=== PATIENT | female | born 1970 | race Caucasian/White ===

== ENCOUNTER 2018-11-06 10:05 | Day surgery (SDC) | payer OTHER ==
[~2018-11-06] VITALS: Ht 174 cm; Wt 64.7 kg
[~2018-11-06 10:05] MED LIST: BUDE10.22 INH; BUPIVACAINE/PF 0.5% ONE; DULO60CA55 PO; EPINEPHRINE 1 MG/ML, 1ML ONE; RANI150T4 PO
[2018-11-06 10:37] VITALS: BP 122/83
[2018-11-06] MEDS ORDERED: LACTATED RINGERS 1,000 ML IV SCH (10:37)
[2018-11-06 11:00] LABS: HCG UR SG 1.024 (1.003-1.030)
[2018-11-06] MEDS ORDERED: ACETAMINOPHEN 500 MG TABLET PO ONE (11:00)
[2018-11-06] MEDS ORDERED: GABAPENTIN 300 MG CAPSULE PO ONE (11:00)
[2018-11-06] MEDS ORDERED: MIDAZOLAM 1 MG/ML, 2ML ONE (11:09)
[2018-11-06] MEDS ORDERED: FENTANYL PF 250 MCG/5ML ONE (11:09)
[2018-11-06] MEDS ORDERED: HYDROmorphone 2 MG/ML, 1ML IVPush PRN (11:30)
[2018-11-06] MEDS ORDERED: HALOPERIDOL 5 MG/ML IV PRN (11:30)
[2018-11-06] MEDS ORDERED: DIPHENHYDRAMINE 50 MG/ML, 1ML IVPush PRN (11:30)
[2018-11-06] MEDS ORDERED: hydrALAzine 20 MG/ML, 1ML IV PRN (11:30)
[2018-11-06] MEDS ORDERED: PROMETHAZINE 25 MG/ML, 1ML IV PRN (11:30)
[2018-11-06] MEDS ORDERED: MEPERIDINE/PF 25MG/0.5ML IVPush PRN (11:30)
[2018-11-06] MEDS ORDERED: OXYcodone 5 MG/5 ML ORAL.SOL UDC PO PRN (11:30)
[2018-11-06] MEDS ORDERED: FENTANYL PF 100 MCG/2ML IV PRN (11:30)
[2018-11-06] MEDS ORDERED: PROCHLORPERAZINE 5 MG/ML, 2ML IV PRN (11:30)
[2018-11-06] MEDS ORDERED: METOPROLOL 1 MG/ML, 5ML IV PRN (11:30)
[2018-11-06] MEDS ORDERED: LABETALOL 5MG/ML, 20ML IV PRN (11:30)
[2018-11-06] MEDS ORDERED: GLYCOPYRROLATE 0.2MG/1ML, 5ML ONE (14:06)
[2018-11-06] MEDS ORDERED: CEFAZOLIN 1,000 MG ONE (14:06)
[2018-11-06] MEDS ORDERED: SUCCINYLCHOLINE 20 MG/ML, 10ML ONE (14:06)
[2018-11-06] MEDS ORDERED: DEXAMETHASONE 4 MG/ML, 1ML ONE (14:06)
[2018-11-06] MEDS ORDERED: PROPOFOL 10 MG/ML, 20ML ONE (14:06)
[2018-11-06] MEDS ORDERED: NEOSTIGMINE 1 MG/ML, 10ML ONE (14:06)
[2018-11-06] MEDS ORDERED: ONDANSETRON 2MG/ML, 2ML ONE (14:06)
[2018-11-06] MEDS ORDERED: ROCURONIUM 10MG/ML,5ML ONE (14:06)
[2018-11-06] MEDS ORDERED: OXYcodone 5 MG/5 ML ORAL.SOL UDC ONE (15:08)
[2018-11-06] MEDS ORDERED: FENTANYL PF 100 MCG/2ML ONE (15:08)
== END 2018-11-06 18:00 | disposition home or self-care (01) ==
LOC: OUT 10:05
PROVIDERS: ATTEND Surgery
DX: K43.2 Incisional hernia without obstruction or gangrene (principal); J45.909 Unspecified asthma, uncomplicated; F41.9 Anxiety disorder, unspecified; K21.9 Gastro-esophageal reflux disease without esophagitis; E66.9 Obesity, unspecified; Z68.22 Body mass index [BMI] 22.0-22.9, adult; Z72.89 Other problems related to lifestyle; Z79.899 Other long term (current) drug therapy; Z90.49 Acquired absence of other specified parts of digestive tract; Z98.890 Other specified postprocedural states; Z82.49 Family history of ischemic heart disease and other diseases of the circulatory system; Z80.9 Family history of malignant neoplasm, unspecified
CPT/HCPCS: 49656; 81025; C1781; J0171; J0330; J0690; J1100; J2250; J2405; J2704; J2710; J3010; J7120; S2900

== ENCOUNTER 2018-11-25 02:17 | Emergency (ER) | payer OTHER ==
[~2018-11-25] VITALS: Ht 172.7 cm; Wt 67.6 kg
[~2018-11-25 02:17] MED LIST changes: -BUPIVACAINE/PF 0.5% ONE; -EPINEPHRINE 1 MG/ML, 1ML ONE
--- NOTE | 2018-11-25 02:35 | NUR ---
HERNIA REPAIR X 2 WEEKS, HAS HAD FEVER TODAY, JOSE, JOINT PAIN. TOOK ADVIL @ 0000.
[2018-11-25] MEDS ORDERED: ACETAMINOPHEN 500 MG TABLET ONE (02:54)
[2018-11-25] MEDS ORDERED: ACETAMINOPHEN 500 MG TABLET PO ONE (03:00)
--- NOTE | 2018-11-25 03:00 | NUR ---
pt attached to all monitors
[2018-11-25 03:10] LABS: BASOPHILS # (AUTO) 0.03 x10^3/uL (0-0.1); BASOPHILS % (AUTO) 0 % (0-1); EOSINOPHILS # (AUTO) 0.05 x10^3/uL (0-0.4); EOSINOPHILS % (AUTO) 1 % (1-7); LYMPHOCYTES # (AUTO) 1.04 x10^3/uL (1-3.4); LYMPHOCYTES % (AUTO) 17 % (22-44); MD NO; MEAN CORPUSCULAR HEMOGLOBIN 31.1 pg (27.0-34.8); MEAN CORPUSCULAR VOLUME 94.2 fL (80-100); MEAN PLATELET VOLUME 8.4 fL (7.4-10.4); MONOCYTES # (AUTO) 0.39 x10^3/uL (0.2-0.8); MONOCYTES % (AUTO) 6 % (2-9); NEUTROPHILS # (AUTO) 4.81 x10^3/uL (1.8-6.8); NEUTROPHILS % (AUTO) 76 % (42-75); PLATELET COUNT 275 x10^3/uL (130-400); RED BLOOD COUNT 4.32 x10^6/uL (3.82-5.3); RED CELL DISTRIBUTION WIDTH 13.2 % (9.6-15.2)
[2018-11-25 03:17] LABS: ALANINE AMINOTRANSFERASE 19 U/L (12-78); ALBUMIN 3.7 g/dL (3.4-5.0); ANION GAP 6 mmol/L (5-15); CALCIUM 8.6 mg/dL (8.5-10.1); CHLORIDE 106 mmol/L (98-107); CREATININE 0.97 mg/dL (0.55-1.02)
[2018-11-25 03:21] LABS: ALKALINE PHOSPHATASE 39 U/L (45-117); BILIRUBIN,TOTAL 0.4 mg/dL (0.2-1.0); TOTAL PROTEIN 6.7 g/dL (6.4-8.2); TROPONIN I < 0.015 ng/mL (0.000-0.045)
[2018-11-25 03:34] LABS: RAPID INFLUENZA A Negative (Negative); RAPID INFLUENZA B Negative (Negative)
[2018-11-25 03:38] LABS: MICROSCOPIC NOT IND
[2018-11-25 03:44] LABS: CULTURE INDICATED? NO
[2018-11-25] MEDS ORDERED: KETOROLAC 30 MG/1 ML IVPush ONE (04:00)
[2018-11-25] MEDS ORDERED: PROCHLORPERAZINE 5 MG/ML, 2ML IVPush ONE (04:00)
[2018-11-25] MEDS ORDERED: SODIUM CHLORIDE 0.9% 1,000ML IVBOLUS ONE (04:00)
--- NOTE | 2018-11-25 04:27 | NUR ---
pt reports her headache feels better after po meds but she still has a headache. pt stated on ivf per md orders. will medicate per emar for headache.
[2018-11-25] MEDS ORDERED: PROCHLORPERAZINE 5 MG/ML, 2ML ONE (04:28)
[2018-11-25] MEDS ORDERED: KETOROLAC 30 MG/1 ML ONE (04:28)
--- NOTE | 2018-11-25 04:49 | NUR ---
pt medicated for pain per emar. pt provided with lemon swabs for dry mouth.
[2018-11-25 04:53] VITALS: BP 131/81
--- NOTE | 2018-11-25 04:53 | NUR ---
er md in to assess pt. pt reports her headache feels much better and she is ready to go home.
--- NOTE | 2018-11-25 05:08 | NUR ---
Patient/Caregiver given discharge instructions and they have confirmed that they understand the instructions. Patient ambulatory with steady gait.
== END 2018-11-25 05:09 | disposition home or self-care (01) ==
LOC: ED 02:55
DX: R51 Headache (principal); E86.0 Dehydration; M79.10 Myalgia, unspecified site; R50.9 Fever, unspecified; Z90.49 Acquired absence of other specified parts of digestive tract
CPT/HCPCS: 36415; 71045; 80053; 81003; 83605; 84484; 84703; 85025; 85379; 87400; 93005; 96361; 96374; 96375; 99284; J0780; J1885; J7030